=== PATIENT | female | born 1995 | race African-American/Black ===

== ENCOUNTER 2017-10-07 22:16 | Emergency (ER) | payer MEDICAID ==
[~2017-10-07] VITALS: Ht 170.2 cm; Wt 68.1 kg
[2017-10-07 22:19] VITALS: BP 143/90
--- NOTE | 2017-10-07 22:25 | NUR ---
pt assisted back to lobby in stable condition
--- NOTE | 2017-10-07 23:20 | NUR ---
Called pt in [facility], but no answer. PATIENT LEFT WITHOUT BEING SEEN BY DR. Hayes. NO FURTHER CARE PROVIDED FOR PATIENT.
--- NOTE | 2017-10-07 23:30 | NUR ---
Called pt, but no answer in [facility].
--- NOTE | 2017-10-07 23:40 | NUR ---
Called pt, but no answer in [facility].
== END 2017-10-07 23:20 | disposition left against medical advice (07) ==
LOC: MED 22:16
DX: Z53.21 Procedure and treatment not carried out due to patient leaving prior to being seen by health care provider (principal); N64.4 Mastodynia